=== PATIENT | female | born 1975 | race Caucasian/White ===

== ENCOUNTER 2018-04-22 20:35 | Inpatient (IN) | payer MEDICARE, MEDICAID ==
[~2018-04-22] VITALS: Ht 167.6 cm; Wt 82.4 kg
[~2018-04-22 20:35] MED LIST: METO-292 PO; MYCO180T PO; PANT40TA39 PO; PRED5TAB PO; TACR1CAP28 PO; TOPI25TA15 PO
[2018-04-22] MEDS ORDERED: normal saline 1000ML IV soln IVB ONE (21:20)
[2018-04-22] MEDS ORDERED: metoclopramide 5 mg/ml inj IV ONE (21:20)
[2018-04-22 21:50] LABS: ABG BASE EXCESS 2.8 mmol/L (-2.0-3.0); ABG OXYGEN SATURATION 95.2 % (95-98); ABG PCO2 (T) 40.1 mmHg (32.0-45.0); ABG PH (T) 7.446 (7.350-7.450); FCOHb 0.7 % (0.5-1.5); FMetHb 0.2 % (0.3-1.12); FO2Hb 94.3 % (94-100); PATIENT TEMPERATURE 37.1; RESPIRATORY RATE (OBSERVED) 18 b/min; TOTAL HEMOGLOBIN 12.6 G/dl (12.0-16.0)
[2018-04-22 22:27] LABS: HEMATOCRIT 36.2 % (35.0-45.0); MEAN CORPUSCULAR VOLUME 93.9 FL (78-98); MEAN PLATELET VOLUME 8.1 FL (7.4-10.4); PLATELET COUNT 341 X10'3 (140-440); RED BLOOD COUNT 3.86 X10'6 (4.20-5.60)
[2018-04-22 22:36] LABS: ALANINE AMINOTRANSFERASE 14 U/L (12-78); ALBUMIN 3.5 G/DL (3.4-5.0); ALBUMIN/GLOBULIN RATIO 0.8 (1.1-1.5); ALKALINE PHOSPHATASE 79 IU/L (46-116); ANION GAP 12 (8-16); ASPARTATE AMINO TRANSFERASE 8 U/L (10-37); BILIRUBIN,TOTAL 0.4 MG/DL (0.1-1.0); BLOOD UREA NITROGEN 64 MG/DL (7-18); BUN/CREATININE RATIO 7.7 (6.6-38.0); CALCIUM 8.8 MG/DL (8.5-10.1); CHLORIDE 97 MMOL/L (99-107); GLUCOSE 256 MG/DL (70-104); MAGNESIUM 2.5 MG/DL (1.5-2.4); PHOSPHORUS 5.2 MG/DL (2.3-4.5); POTASSIUM 5.3 MMOL/L (3.5-5.1); SODIUM 136 MMOL/L (135-145); TOTAL CARBON DIOXIDE 27.1 MMOL/L (24-32); eGFR 5 ML/MIN
[2018-04-22] MEDS ORDERED: acetaminophen 325mg tablet PO PRN ×2 (22:50)
[2018-04-22 23:58] LABS: PLATELET ESTIMATE NORMAL; TOTAL CELLS COUNTED 100
--- NOTE | 2018-04-23 00:18 | NUR ---
CALLED ICU JONATAN RUIZ [phone] JONATAN IS AWARE OF ALL ABNORMAL LABS, CURRENT VITALS INCLUDING HEART RATE AND BLOOD PRESSURE. JONATAN RUIZ IS AWARE PATIENT IS GOING TO THE FLOOR NOT ON TELE. SHE IS A RENAL PATIENT AND ON DIALYSIS.
[2018-04-23 00:20] VITALS: BP 202/110
--- NOTE | 2018-04-23 00:29 | NUR ---
REPORT TO ANNA CUELLOENVIRONMENTAL SAMPLER; PATIENT IS GOING TO ROOM 347A ON [facility], NO TELE ORDERED WITH ALL BELONGINGS
--- NOTE | 2018-04-23 00:30 | NUR ---
I have received report from Fransisca CUELLO from ED and had the opportunity to ask questions and assume patient care. Will assess patient when she arrives to floor.
[2018-04-23] MEDS: ondansetron/PF 4mg/2ml inj IV PRN ×2 (00:56→07:02)
[2018-04-23] MEDS ORDERED: morphine 4 MG/ML inj SYRINge IV PRN (01:30)
[2018-04-23] MEDS: HYDROmorphone 1 mg/ml syringe IV PRN ×3 (02:01→11:34)
[2018-04-23] MEDS ORDERED: hydrALAZINE 20mg/ml inj. IV ONE (02:55)
[2018-04-23 03:07] LABS: BASOPHILS # (AUTO) 0.1 X10'3 (0-0.2); BASOPHILS % (AUTO) 1.8 % (0-1); EOSINOPHILS % (AUTO) 0 % (0-6); HEMOGLOBIN 11.7 g/dl (12.0-16.0); LYMPHOCYTES # (AUTO) 0.6 X10'3 (1.1-4.8); LYMPHOCYTES % (AUTO) 7.3 % (21-51); MEAN CORPUSCULAR HEMOGLOBIN 30.8 PG (27.0-31.0); MEAN CORPUSCULAR HGB CONC 32.5 % (33.0-36.5); MEAN PLATELET VOLUME 8.5 FL (7.4-10.4); MONOCYTES # (AUTO) 0.2 X10'3 (0-0.9); MONOCYTES % (AUTO) 2.1 % (2-12); NEUTROPHILS % (AUTO) 88.8 % (42-75); PLATELET COUNT 369 X10'3 (140-440); RED CELL DISTRIBUTION WIDTH 14.5 % (11.5-14.5); WHITE BLOOD COUNT 7.9 X10'3 (4.5-11.0)
[2018-04-23 03:13] LABS: ALANINE AMINOTRANSFERASE 12 U/L (12-78); ALBUMIN 3.5 G/DL (3.4-5.0); ALBUMIN/GLOBULIN RATIO 0.8 (1.1-1.5); ALKALINE PHOSPHATASE 79 IU/L (46-116); ANION GAP 15 (8-16); ASPARTATE AMINO TRANSFERASE 11 U/L (10-37); BILIRUBIN,TOTAL 0.4 MG/DL (0.1-1.0); BLOOD UREA NITROGEN 66 MG/DL (7-18); BUN/CREATININE RATIO 7.5 (6.6-38.0); CALCIUM 8.7 MG/DL (8.5-10.1); CHLORIDE 97 MMOL/L (99-107); CREATININE 8.83 MG/DL (0.40-0.90); GLUCOSE 179 MG/DL (70-104); MAGNESIUM 2.5 MG/DL (1.5-2.4); PHOSPHORUS 5.5 MG/DL (2.3-4.5); POTASSIUM 5.3 MMOL/L (3.5-5.1); SODIUM 138 MMOL/L (135-145); TOTAL CARBON DIOXIDE 26.4 MMOL/L (24-32); TOTAL PROTEIN 7.9 G/DL (6.4-8.2); eGFR 5 ML/MIN
[2018-04-23 04:00] VITALS: BP 132/59
--- NOTE | 2018-04-23 06:00 | NUR ---
Received orders from Anthony Villar CHAMFERING MACHINE OPERATOR for: Morphine allergy is burning rash all over body per patient when went to scan medication. Not given. 0200 Dilaudid due to morphine allergy and pain is 10/10 in abd burning pain. 0300 hydralazine due to BP 170/90+ multiple times after pain medication and nausea medication provided. Will continue to monitor.
--- NOTE | 2018-04-23 06:30 | NUR ---
Problems reprioritized. Patient report given, questions answered & plan of care reviewed with Ava CUELLO. Patient resting eyes closed respirations even.
--- NOTE | 2018-04-23 06:44 | NUR ---
Patient in room [facility]. I have received report from KHUSHBOO GUIDO and had the opportunity to ask questions and assume patient care.
[2018-04-23 07:00] VITALS: BP 170/92
--- NOTE | 2018-04-23 07:13 | NUR ---
patient temp 100 oral, bp 170/92, hr 126. patient had just been vomiting and c/o pain. zofran and dilaudid administered as ordered. patient shaking and stated she was feeling cold. educated patient her temp was 100 and to remove blankets she has on as her she is cold due to her body attempting to cool itself down. patient refused to remove blankets. she has on 2 blankets and 1 sheet. asked patient if she would at least remove one blanket and her socks for now and patient continue to refuse. will continue to monitor.
[2018-04-23] MEDS: predniSONE 5mg tablet PO SCH (08:00)
[2018-04-23] MEDS: metoclopramide 10mg tablet PO SCH ×3 (08:00→20:22)
[2018-04-23] MEDS: topiramate 25mg tablet PO SCH ×2 (08:00→20:00)
[2018-04-23] MEDS: tacrolimus anhydrous 1mg capsule PO SCH ×2 (08:00→20:00)
[2018-04-23] MEDS: pantoprazole 40mg Tablet.DR PO SCH (08:00)
[2018-04-23] MEDS: mycophenolate sod SR tablet 180 MG TABLET.DR PO SCH ×2 (08:00→20:00)
[2018-04-23 08:24] VITALS: BP 153/78
[2018-04-23 11:00] VITALS: BP 155/80
[2018-04-23] MEDS ORDERED: ondansetron/PF 4mg/2ml inj IV ONE (11:30)
[2018-04-23] MEDS ORDERED: ondansetron/PF 4mg/2ml inj IV PRN (11:30)
[2018-04-23] MEDS ORDERED: normal saline 1000ml 250 ML IV PRN (11:40)
[2018-04-23] MEDS ORDERED: LIDOcaine 1% (10mg/ml) 2ml vial SQ ONE (11:40)
[2018-04-23] MEDS ORDERED: heparin 1,000 units/ml 10ml inj IV ONE (11:40)
[2018-04-23] MEDS: proCHLORperazine 10 MG/2 ml inj IV PRN ×2 (15:39→21:14)
--- NOTE | 2018-04-23 18:48 | NUR ---
Problems reprioritized. Patient report given, questions answered & plan of care reviewed with KHUSHBOO Cedeño.
[2018-04-23 19:00] VITALS: BP 165/86
[2018-04-23] MEDS ORDERED: HYDROmorphone inj. 0.5 MG/0.5 ML DISP.SYRIN IV PRN (20:50)
[2018-04-23] MEDS: HYDROmorphone inj. 0.5 MG/0.5 ML DISP.SYRIN IV SCH (21:14)
[2018-04-24] VITALS: BP 151/85
--- NOTE | 2018-04-24 00:48 | NUR ---
Pt has been resting very comfortably after Dilaudid and Compazine given as ordered. Pt was not woken up for her midnight dose of Dilaudid as prior dose is still effective. Will continue to monitor N/V and Pain. Addendum: 04/24/18 at 0050 by Gala Busby RN Amended: Links added.
[2018-04-24] MEDS: HYDROmorphone inj. 0.5 MG/0.5 ML DISP.SYRIN IV SCH ×9 (03:00→23:44)
[2018-04-24] MEDS: proCHLORperazine 10 MG/2 ml inj IV PRN ×3 (04:09→23:04)
--- NOTE | 2018-04-24 06:20 | NUR ---
Patient in room [facility]. I have received report from ARCELIA CUELLO and had the opportunity to ask questions and assume patient care.
--- NOTE | 2018-04-24 06:42 | NUR ---
Problems reprioritized. Patient report given, questions answered & plan of care reviewed with Nadine CUELLO. Addendum: 04/24/18 at 0643 by Gala Busby RN Amended: Links added.
[2018-04-24 07:00] VITALS: BP 184/96
[2018-04-24 07:13] LABS: ALANINE AMINOTRANSFERASE 14 U/L (12-78); ALBUMIN 3.7 G/DL (3.4-5.0); ALBUMIN/GLOBULIN RATIO 0.8 (1.1-1.5); ALKALINE PHOSPHATASE 83 IU/L (46-116); ANION GAP 15 (8-16); ASPARTATE AMINO TRANSFERASE 11 U/L (10-37); BILIRUBIN,TOTAL 0.7 MG/DL (0.1-1.0); BLOOD UREA NITROGEN 26 MG/DL (7-18); CHLORIDE 96 MMOL/L (99-107); CREATININE 5.19 MG/DL (0.40-0.90); GLUCOSE 186 MG/DL (70-104); MAGNESIUM 2.2 MG/DL (1.5-2.4); PHOSPHORUS 6.7 MG/DL (2.3-4.5); POTASSIUM 4.5 MMOL/L (3.5-5.1); SODIUM 138 MMOL/L (135-145); TOTAL CARBON DIOXIDE 26.9 MMOL/L (24-32); TOTAL PROTEIN 8.1 G/DL (6.4-8.2); eGFR 9 ML/MIN
[2018-04-24 07:14] LABS: BASOPHILS # (AUTO) 0.2 X10'3 (0-0.2); EOSINOPHILS % (AUTO) 0.2 % (0-6); HEMATOCRIT 37.6 % (35.0-45.0); HEMOGLOBIN 12.2 g/dl (12.0-16.0); LYMPHOCYTES # (AUTO) 1.1 X10'3 (1.1-4.8); LYMPHOCYTES % (AUTO) 11.7 % (21-51); MEAN CORPUSCULAR HEMOGLOBIN 30.7 PG (27.0-31.0); MEAN CORPUSCULAR HGB CONC 32.3 % (33.0-36.5); MEAN PLATELET VOLUME 8.5 FL (7.4-10.4); MONOCYTES # (AUTO) 0.4 X10'3 (0-0.9); MONOCYTES % (AUTO) 4.6 % (2-12); NEUTROPHILS # (AUTO) 7.8 X10'3 (1.8-7.7); NEUTROPHILS % (AUTO) 81.5 % (42-75); PLATELET COUNT 373 X10'3 (140-440); RED BLOOD COUNT 3.96 X10'6 (4.20-5.60); RED CELL DISTRIBUTION WIDTH 15.9 % (11.5-14.5); WHITE BLOOD COUNT 9.6 X10'3 (4.5-11.0)
[2018-04-24] MEDS: topiramate 25mg tablet PO SCH ×2 (08:00→20:45)
[2018-04-24] MEDS: predniSONE 5mg tablet PO SCH (08:00)
[2018-04-24] MEDS: pantoprazole 40mg Tablet.DR PO SCH (08:00)
[2018-04-24] MEDS: mycophenolate sod SR tablet 180 MG TABLET.DR PO SCH ×3 (08:00→20:46)
[2018-04-24] MEDS: metoclopramide 10mg tablet PO SCH ×3 (08:00→20:45)
[2018-04-24] MEDS: tacrolimus anhydrous 1mg capsule PO SCH ×3 (08:00→20:44)
--- NOTE | 2018-04-24 10:00 | NUR ---
PT HAS BEEN N/V SINCE MY SHIFT. I CALLED THE GAS METER READER TO ASK IF SHE COULD HAVE IT SOONER. ASLO LET HIM KNOW THAT PT IS REFUSING PO MEDS BECAUSE OF THE VOMITING. PT ALSO HAS AN ELEVATED BP. GAS METER READER ORDERED ATIVAN 2MG IV ONCE
[2018-04-24] MEDS ORDERED: LORazepam 2 mg/ml vial IV ONE (10:25)
[2018-04-24 11:00] VITALS: BP 134/80
[2018-04-24] MEDS ORDERED: LORazepam 2 mg/ml vial IV PRN (17:15)
[2018-04-24] MEDS: NUT.TX.IMP.RENAL FXN,LAC-REDUC (Nepro) 237 ML VANILLA PO SCH (18:00)
--- NOTE | 2018-04-24 18:29 | NUR ---
Problems reprioritized. Patient report given, questions answered & plan of care reviewed with IZZY CUELLO.
--- NOTE | 2018-04-24 18:30 | NUR ---
Patient in room [facility]. I have received report from PITA CUELLO and had the opportunity to ask questions and assume patient care.
[2018-04-24 19:00] VITALS: BP 153/86
[2018-04-25] VITALS: BP 154/95
[2018-04-25] MEDS: HYDROmorphone inj. 0.5 MG/0.5 ML DISP.SYRIN IV SCH ×3 (03:09→09:00)
--- NOTE | 2018-04-25 06:30 | NUR ---
Problems reprioritized. Patient report given, questions answered & plan of care reviewed with DARYL CUELLO.
[2018-04-25 07:13] LABS: ALANINE AMINOTRANSFERASE 13 U/L (12-78); ALBUMIN 3.6 G/DL (3.4-5.0); ALBUMIN/GLOBULIN RATIO 0.8 (1.1-1.5); ALKALINE PHOSPHATASE 90 IU/L (46-116); ANION GAP 18 (8-16); ASPARTATE AMINO TRANSFERASE 13 U/L (10-37); BILIRUBIN,TOTAL 0.6 MG/DL (0.1-1.0); BLOOD UREA NITROGEN 59 MG/DL (7-18); BUN/CREATININE RATIO 7.5 (6.6-38.0); CHLORIDE 90 MMOL/L (99-107); CREATININE 7.84 MG/DL (0.40-0.90); GLUCOSE 144 MG/DL (70-104); MAGNESIUM 2.4 MG/DL (1.5-2.4); PHOSPHORUS 8.2 MG/DL (2.3-4.5); POTASSIUM 4.8 MMOL/L (3.5-5.1); SODIUM 134 MMOL/L (135-145); TOTAL PROTEIN 8.1 G/DL (6.4-8.2); eGFR 6 ML/MIN
--- NOTE | 2018-04-25 07:16 | NUR ---
Patient in room [facility]. I have received report from Julio CUELLO and had the opportunity to ask questions and assume patient care.
[2018-04-25 07:26] LABS: BASOPHILS # (AUTO) 0.1 X10'3 (0-0.2); BASOPHILS % (AUTO) 1.2 % (0-1); EOSINOPHILS # (AUTO) 0.1 X10'3 (0-0.9); EOSINOPHILS % (AUTO) 1.3 % (0-6); HEMATOCRIT 38.5 % (35.0-45.0); HEMOGLOBIN 12.3 g/dl (12.0-16.0); LYMPHOCYTES # (AUTO) 1.3 X10'3 (1.1-4.8); LYMPHOCYTES % (AUTO) 11.9 % (21-51); MEAN CORPUSCULAR HEMOGLOBIN 30.1 PG (27.0-31.0); MEAN CORPUSCULAR HGB CONC 31.8 % (33.0-36.5); MEAN CORPUSCULAR VOLUME 94.6 FL (78-98); MEAN PLATELET VOLUME 8.6 FL (7.4-10.4); MONOCYTES # (AUTO) 0.5 X10'3 (0-0.9); MONOCYTES % (AUTO) 4.5 % (2-12); NEUTROPHILS # (AUTO) 8.6 X10'3 (1.8-7.7); NEUTROPHILS % (AUTO) 81.1 % (42-75); PLATELET COUNT 374 X10'3 (140-440); RED BLOOD COUNT 4.07 X10'6 (4.20-5.60); RED CELL DISTRIBUTION WIDTH 15.6 % (11.5-14.5); WHITE BLOOD COUNT 10.6 X10'3 (4.5-11.0)
[2018-04-25] MEDS: metoclopramide 10mg tablet PO SCH ×3 (07:40→20:44)
[2018-04-25] MEDS: topiramate 25mg tablet PO SCH ×2 (07:40→20:44)
[2018-04-25] MEDS: pantoprazole 40mg Tablet.DR PO SCH (07:40)
[2018-04-25] MEDS: mycophenolate sod SR tablet 180 MG TABLET.DR PO SCH ×2 (07:40→20:43)
[2018-04-25] MEDS: tacrolimus anhydrous 1mg capsule PO SCH ×2 (07:40→20:44)
[2018-04-25] MEDS: predniSONE 5mg tablet PO SCH (07:40)
[2018-04-25] MEDS: NUT.TX.IMP.RENAL FXN,LAC-REDUC (Nepro) 237 ML VANILLA PO SCH ×5 (07:47→17:41)
[2018-04-25 08:00] VITALS: BP 175/91
[2018-04-25 11:39] LABS: ALBUMIN 3.3 G/DL (3.4-5.0); ANION GAP 16 (8-16); BLOOD UREA NITROGEN 65 MG/DL (7-18); BUN/CREATININE RATIO 7.7 (6.6-38.0); CALCIUM 8.5 MG/DL (8.5-10.1); CHLORIDE 90 MMOL/L (99-107); CREATININE 8.48 MG/DL (0.40-0.90); GLUCOSE 137 MG/DL (70-104); POTASSIUM 5.4 MMOL/L (3.5-5.1); SODIUM 131 MMOL/L (135-145); TOTAL CARBON DIOXIDE 25.1 MMOL/L (24-32); eGFR 5 ML/MIN
[2018-04-25 12:00] VITALS: BP 168/96
[2018-04-25] MEDS: proCHLORperazine 10 MG/2 ml inj IV PRN ×3 (12:43→20:59)
[2018-04-25] MEDS: HYDROmorphone inj. 0.5 MG/0.5 ML DISP.SYRIN IV PRN ×2 (17:26→21:00)
--- NOTE | 2018-04-25 18:23 | NUR ---
Problems reprioritized. Patient report given, questions answered & plan of care reviewed with Kristi CUELLO.
--- NOTE | 2018-04-25 18:25 | NUR ---
Patient in room [facility]. I have received report from KHUSHBOO Mccormick and had the opportunity to ask questions and assume patient care. Addendum: 04/25/18 at 1915 by Camille Ohara RN Amended: Links added.
--- NOTE | 2018-04-25 20:40 | NUR ---
pt has not been darted yet, apparently refused on admission. pt declines at this time, d/t pain and nausea, wants to sleep. states will do tomorrow. Addendum: 04/26/18 at 0304 by Camille Ohara RN Amended: Links added.
[2018-04-25 23:30] VITALS: BP 148/75
[2018-04-26] MEDS: proCHLORperazine 10 MG/2 ml inj IV PRN (05:34)
[2018-04-26] MEDS: HYDROmorphone inj. 0.5 MG/0.5 ML DISP.SYRIN IV PRN (05:35)
--- NOTE | 2018-04-26 06:10 | NUR ---
Patient in room [facility]. I have received report from KHUSHBOO Santoro and had the opportunity to ask questions and assume patient care. Addendum: 04/26/18 at 1048 by Radha Infante RN Report received from ALBERTO Berry.
[2018-04-26 06:30] VITALS: BP 154/78
--- NOTE | 2018-04-26 06:33 | NUR ---
Problems reprioritized. Patient report given, questions answered & plan of care reviewed with KHUSHBOO SIMENTAL. Addendum: 04/26/18 at 0633 by Camille Ohara RN Amended: Links added.
[2018-04-26 06:41] LABS: BASOPHILS # (AUTO) 0.1 X10'3 (0-0.2); BASOPHILS % (AUTO) 1.2 % (0-1); EOSINOPHILS # (AUTO) 0.3 X10'3 (0-0.9); EOSINOPHILS % (AUTO) 2.9 % (0-6); HEMATOCRIT 34.8 % (35.0-45.0); HEMOGLOBIN 11.2 g/dl (12.0-16.0); LYMPHOCYTES # (AUTO) 2.5 X10'3 (1.1-4.8); LYMPHOCYTES % (AUTO) 26.4 % (21-51); MEAN CORPUSCULAR HEMOGLOBIN 30.1 PG (27.0-31.0); MEAN CORPUSCULAR HGB CONC 32.2 % (33.0-36.5); MEAN CORPUSCULAR VOLUME 93.4 FL (78-98); MEAN PLATELET VOLUME 8.1 FL (7.4-10.4); MONOCYTES # (AUTO) 0.7 X10'3 (0-0.9); MONOCYTES % (AUTO) 7.2 % (2-12); NEUTROPHILS % (AUTO) 62.3 % (42-75); PLATELET COUNT 350 X10'3 (140-440); RED BLOOD COUNT 3.72 X10'6 (4.20-5.60); RED CELL DISTRIBUTION WIDTH 14.5 % (11.5-14.5); WHITE BLOOD COUNT 9.6 X10'3 (4.5-11.0)
[2018-04-26 06:54] LABS: ALANINE AMINOTRANSFERASE 11 U/L (12-78); ALBUMIN/GLOBULIN RATIO 0.8 (1.1-1.5); ALKALINE PHOSPHATASE 69 IU/L (46-116); ANION GAP 18 (8-16); ASPARTATE AMINO TRANSFERASE 10 U/L (10-37); BILIRUBIN,TOTAL 0.5 MG/DL (0.1-1.0); BLOOD UREA NITROGEN 82 MG/DL (7-18); BUN/CREATININE RATIO 7.9 (6.6-38.0); CHLORIDE 89 MMOL/L (99-107); CREATININE 10.41 MG/DL (0.40-0.90); GLUCOSE 125 MG/DL (70-104); MAGNESIUM 2.4 MG/DL (1.5-2.4); POTASSIUM 4.6 MMOL/L (3.5-5.1); SODIUM 130 MMOL/L (135-145); TOTAL CARBON DIOXIDE 23.2 MMOL/L (24-32); TOTAL PROTEIN 6.8 G/DL (6.4-8.2); eGFR 4 ML/MIN
[2018-04-26 06:57] LABS: PHOSPHORUS 9.9 MG/DL (2.3-4.5)
[2018-04-26] MEDS: metoclopramide 10mg tablet PO SCH ×3 (07:52→20:15)
[2018-04-26] MEDS: predniSONE 5mg tablet PO SCH (07:52)
[2018-04-26] MEDS: topiramate 25mg tablet PO SCH ×2 (07:52→20:15)
[2018-04-26] MEDS: pantoprazole 40mg Tablet.DR PO SCH (07:52)
[2018-04-26] MEDS: tacrolimus anhydrous 1mg capsule PO SCH ×2 (07:52→20:15)
[2018-04-26] MEDS: mycophenolate sod SR tablet 180 MG TABLET.DR PO SCH ×2 (07:52→20:15)
[2018-04-26] MEDS: NUT.TX.IMP.RENAL FXN,LAC-REDUC (Nepro) 237 ML VANILLA PO SCH ×6 (07:53→18:00)
[2018-04-26] MEDS ORDERED: heparin 1,000 units/ml 10ml inj IV ONE (08:00)
[2018-04-26] MEDS ORDERED: normal saline 1000ml 250 ML IV PRN (08:00)
[2018-04-26] MEDS ORDERED: LIDOcaine 1% (10mg/ml) 2ml vial SQ ONE (08:00)
[2018-04-26 11:00] VITALS: BP 152/77
[2018-04-26] MEDS ORDERED: HYDR-3972 PO (13:03)
[2018-04-26] MEDS ORDERED: FOLI1TAB16 PO (13:03)
[2018-04-26] MEDS ORDERED: FOLI1CAP PO (13:03)
[2018-04-26] MEDS: HYDROcodone/acetaminophen 10/325mg tab PO PRN ×2 (14:15→20:17)
--- NOTE | 2018-04-26 14:52 | NUR ---
DC inst provided to pt. Pt to be DC'd after HD, about [id number].
--- NOTE | 2018-04-26 18:10 | NUR ---
Problems reprioritized. Patient report given, questions answered & plan of care reviewed with KHUSHBOO Ruth.
[2018-04-26 19:00] VITALS: BP 159/92
--- NOTE | 2018-04-26 19:40 | NUR ---
Patient in room [facility]. I have received report from KHUSHBOO Garcia and had the opportunity to ask questions and assume patient care. Addendum: 04/26/18 at 1941 by Flory De Leon RN Amended: Links added.
--- NOTE | 2018-04-26 21:07 | NUR ---
pt discharged home with family. personal belongings taken home. pt. taken out via wc by aide. nas[facility].
== END 2018-04-26 21:00 | disposition home or self-care (01) | DRG 73 ==
LOC: ER 20:36 → ED HOLD 22:46 → EDBEDREQSVC 23:18 → SUR 3N 23:59
PROVIDERS: ADMIT Internal Medicine Critical Care Medicine; ATTEND Internal Medicine Critical Care Medicine
PROC: 5A1D70Z Performance of Urinary Filtration, Intermittent, Less than 6 Hours Per Day (ICD-10-PCS; 2018-04-23)
PROC: 5A1D70Z Performance of Urinary Filtration, Intermittent, Less than 6 Hours Per Day (ICD-10-PCS; principal; 2018-04-26)
DX: E10.43 Type 1 diabetes mellitus with diabetic autonomic (poly)neuropathy (principal); N18.6 End stage renal disease; Z94.83 Pancreas transplant status; T86.12 Kidney transplant failure; K31.84 Gastroparesis; Y83.0 Surgical operation with transplant of whole organ as the cause of abnormal reaction of the patient, or of later complication, without mention of misadventure at the time of the procedure; E10.22 Type 1 diabetes mellitus with diabetic chronic kidney disease; E86.0 Dehydration; Z99.2 Dependence on renal dialysis; Z79.4 Long term (current) use of insulin; Z79.899 Other long term (current) drug therapy; Z88.8 Allergy status to other drugs, medicaments and biological substances; Z88.1 Allergy status to other antibiotic agents; Z91.048 Other nonmedicinal substance allergy status; Z80.9 Family history of malignant neoplasm, unspecified
CPT/HCPCS: 36415; 36600; 80048; 80053; 80197; 82803; 83036; 83605; 83735; 84100; 85018; 85025; 87070; 96360; 99285; G0257; G0378; J0360; J0780; J1170; J1644; J2060; J2270; J2405; J2765; J7507; J7512; J8597

== ENCOUNTER 2018-06-12 17:33 | Inpatient (IN) | payer MEDICARE, MEDICAID | END 2018-06-13 10:42 | disposition left against medical advice (07) | LOC: ER 17:33 → PCU 3S 18:00 ==

== ENCOUNTER 2021-12-03 11:08 | Day surgery (SDC) | payer MEDICARE, MEDICAID ==
[2021-12-03] VITALS (10 sets, daily range): BP systolic 116–150; BP diastolic 41–88
[~2021-12-03] VITALS: Ht 170.2 cm; Wt 91.5 kg
[~2021-12-03 11:08] MED LIST changes: +AMLO10TA13 PO; +CALC668T PO; +CARV-50 PO; +FOLI1TAB27 PO; +HYDR-3972 PO; +HYDR-4353 PO; +LABE100T8 PO; +LEVO25TA7 PO; +LORA1TAB PO; -METO-292 PO; +METO5TAB98 PO; +ONDA4TAB9 SL; +ONDA8TAB13 PO; +PANT-47 PO; +PHO667C PO; +PRAM0.253 PO; +PRED10TA23 PO; +PROC25SU31 RC; +TACR1CAP24 PO; -TACR1CAP28 PO; +TOP100T PO; +ZOLP10TA PO
[2021-12-03] MEDS ORDERED: normal saline 1,000 ML IV SCH (11:40)
[2021-12-03] MEDS ORDERED: LORazepam 0.5 MG tablet PO PRN (11:40)
[2021-12-03] MEDS ORDERED: diphenhydrAMINE 25mg capsule PO PRN (11:40)
[2021-12-03] MEDS ORDERED: SUCR1TAB PO (11:48)
[2021-12-03] MEDS ORDERED: TORS10TA17 PO (11:53)
[2021-12-03] MEDS ORDERED: PROC10TA10 PO (11:53)
[2021-12-03] MEDS ORDERED: LANTUS SQ (11:53)
[2021-12-03] MEDS ORDERED: EMPA10TA PO (11:53)
[2021-12-03] MEDS ORDERED: HUM7525 SQ (11:54)
[2021-12-03] MEDS ORDERED: PROC25SU31 RC (11:54)
[2021-12-03] MEDS ORDERED: nitroGLYCERIN-Tridil 50MG/D5W 250 ML IV ONE (12:03)
[2021-12-03] MEDS ORDERED: verapamil 2.5 mg/ml inj IV ONE (12:03)
[2021-12-03] MEDS ORDERED: LIDOcaine 1%/PF 5ML 10 MG/ML VIAL ONE (12:03)
[2021-12-03] MEDS ORDERED: fentaNYL/PF 50MCG/1 ML 2ML syringe ONE (12:04)
[2021-12-03] MEDS ORDERED: midazolam 1 mg/ML 2ml injection ONE (12:04)
[2021-12-03] MEDS ORDERED: iohexol 350MG/ML 100ml bottle IV ONE (12:04)
[2021-12-03] MEDS ORDERED: heparin 1,000unit/ml 10ml vial 10 ML ONE (12:05)
[2021-12-03 14:33] LABS: ISTAT HGB ART 11.9 g/dl (12.0-16.0); ISTAT Hct ART 35 %PCV (35-48); ISTAT O2 SATURATION ARTERIAL 90 % (95-98); ISTAT SOURCE ART
--- NOTE | 2021-12-03 14:34 | NUR ---
Pt back from procedure. Pt denies chest pain, denies sob. Pt radial site and groin drsg are CD&I, no s/s of bleeding or infection. VS stable as charted. Pt caregiver is at bedside.
[2021-12-03] MEDS ORDERED: HYDROcodone/acetaminophen 10/325mg tab PO PRN (14:55)
[2021-12-03] MEDS ORDERED: HYDROcodone/acetaminophen 5mg/325mg tablet PO PRN (14:55)
[2021-12-03] MEDS ORDERED: dextrose 50%-water 50ml dispensing syringe IV ONE (15:13)
--- NOTE | 2021-12-03 15:18 | NUR ---
Pt diaphoretic, responsive. BS checked. BS charted. Administered dextrose per protocol.
[2021-12-03] MEDS ORDERED: dextrose 50%-water 50ml dispensing syringe IV PRN ×2 (15:20)
[2021-12-03] MEDS ORDERED: glucagon, human recombinant 1mg kit SUBCUT PRN (15:20)
[2021-12-03] MEDS ORDERED: DEXTROSE 15 GM of carb/4 tabs (each vial/BOTTLE has 4 tablets) PO PRN ×2 (15:20)
[2021-12-03 15:31] LABS: ISTAT Hct MIX 35 %PCV (35-48); ISTAT O2 SATURATION MIX VENOUS 67 % (60-80); ISTAT SOURCE VEN
--- NOTE | 2021-12-03 15:38 | NUR ---
Recheck pt BS, now 134. Pt independently eating a sandwich, drinking fluids. Total of 250ml oral fluid intake. Pt denies nausea. Denies dizziness. Pt states, "yes, I'm feeling much better". VS stable as charted.
== END 2021-12-03 17:10 | disposition home or self-care (01) ==
LOC: SSTAY O 11:08 → MERGE 11:08 → SSTAY O 17:10
PROVIDERS: ATTEND Student in an Organized Health Care Education/Training Program
DX: I35.0 Nonrheumatic aortic (valve) stenosis (principal); Z79.899 Other long term (current) drug therapy; E11.9 Type 2 diabetes mellitus without complications; F41.9 Anxiety disorder, unspecified; F32.9 Major depressive disorder, single episode, unspecified; F43.10 Post-traumatic stress disorder, unspecified; Z79.4 Long term (current) use of insulin; Z98.890 Other specified postprocedural states; Z88.8 Allergy status to other drugs, medicaments and biological substances; Z88.6 Allergy status to analgesic agent; Z91.018 Allergy to other foods
CPT/HCPCS: 36415; 76937; 82803; 82947; 82948; 85014; 93460; 99152; 99153; C1760; C1769; C1894; J1644; J2250; J3010; J3490; J7030; Q0163; Q9967; A4620; A5120; A6258; A6402

== ENCOUNTER 2021-12-13 10:08 | Outpatient (CLI) | payer MEDICAID, MEDICARE ==
[~2021-12-13 10:08] MED LIST changes: -CALC668T PO; +EMPA10TA PO; +HUM7525 SQ; -HYDR-4353 PO; -LABE100T8 PO; +LANTUS SQ; -PRED10TA23 PO; +PROC10TA10 PO; +SUCR1TAB PO; -TOP100T PO; +TORS10TA17 PO
[2021-12-13 11:03] LABS: BASOPHILS # (AUTO) 0.1 X10'3 (0-0.2); BASOPHILS % (AUTO) 1.2 % (0-1); EOSINOPHILS # (AUTO) 0.2 X10'3 (0-0.9); EOSINOPHILS % (AUTO) 2.7 % (0-6); HEMATOCRIT 41.2 % (35.0-45.0); HEMOGLOBIN 13.2 g/dl (12.0-16.0); LYMPHOCYTES % (AUTO) 33.8 % (21-51); MEAN CORPUSCULAR HEMOGLOBIN 25.8 PG (27.0-31.0); MEAN CORPUSCULAR HGB CONC 32.1 g/dL (33.0-36.5); MEAN CORPUSCULAR VOLUME 80.4 FL (78-98); MEAN PLATELET VOLUME 7.8 FL (7.4-10.4); MONOCYTES # (AUTO) 0.6 X10'3 (0-0.9); MONOCYTES % (AUTO) 6.4 % (2-12); NEUTROPHILS # (AUTO) 4.9 X10'3 (1.8-7.7); NEUTROPHILS % (AUTO) 55.9 % (42-75); PLATELET COUNT 390 X10'3 (140-440); RED BLOOD COUNT 5.12 X10'6 (4.20-5.60); WHITE BLOOD COUNT 8.8 X10'3 (4.5-11.0)
[2021-12-13 11:13] LABS: APTT 25 SECONDS (22-32)
[2021-12-13 11:21] LABS: ALANINE AMINOTRANSFERASE 11 U/L (12-78); ALBUMIN 4.1 G/DL (3.4-5.0); ALBUMIN/GLOBULIN RATIO 0.8 (1.1-1.5); ALKALINE PHOSPHATASE 147 IU/L (46-116); ANION GAP 13 (8-16); ASPARTATE AMINO TRANSFERASE 15 U/L (10-37); BILIRUBIN,TOTAL 0.4 MG/DL (0.1-1.0); BLOOD UREA NITROGEN 37 MG/DL (7-18); BUN/CREATININE RATIO 24.5 (6.6-38.0); CALCIUM 9.8 MG/DL (8.5-10.1); CHLORIDE 97 MMOL/L (99-107); CREATININE 1.51 MG/DL (0.40-0.90); GLUCOSE 138 MG/DL (70-104); POTASSIUM 3.9 MMOL/L (3.5-5.1); SODIUM 137 MMOL/L (135-145); TOTAL CARBON DIOXIDE 26.8 MMOL/L (24-32); TOTAL PROTEIN 9.5 G/DL (6.4-8.2); eGFR 37 ML/MIN
== END 2021-12-13 23:59 | disposition home or self-care (01) ==
LOC: RAD 10:08
PROVIDERS: ATTEND Internal Medicine Cardiovascular Disease
DX: Z01.818 Encounter for other preprocedural examination (principal); J84.10 Pulmonary fibrosis, unspecified; I08.0 Rheumatic disorders of both mitral and aortic valves; I25.10 Atherosclerotic heart disease of native coronary artery without angina pectoris; D73.89 Other diseases of spleen; N83.201 Unspecified ovarian cyst, right side; N83.202 Unspecified ovarian cyst, left side; Z94.0 Kidney transplant status; I65.29 Occlusion and stenosis of unspecified carotid artery; Z79.899 Other long term (current) drug therapy
CPT/HCPCS: 36415; 71046; 71275; 74174; 80053; 85025; 85610; 85730; 87811; 94010; 94729; J3490; Q9967